=== PATIENT | female | born 1980 | race Hispanic/Latino ===

== ENCOUNTER 2023-09-20 12:06 | Emergency (ER) | payer SELFPAY ==
--- NOTE | ~2023-09-20 | CT_ITS ---
EXAMINATION: CT brain wo con DATE: 09/20/2023 15:47 INDICATION: Headache. TECHNIQUE: Computed tomography (CT) of the head was performed without intravenous contrast. The mA wa s adjusted according to patient size. Iterative reconstruction technique was employed. The dose-lengt h product was 605.33 mGy-cm. COMPARISON: None FINDINGS: There is no intracranial hemorrhage, acute infarction, or abnormal intracranial mass lesion . The ventricles are normal in size. The paranasal sinuses are clear. The mastoid air cells are yehuda l. IMPRESSION: 1. Normal brain. Reviewed, dictated and finalized at location A. IMPRESSION: 1. Normal brain.
[2023-09-20 12:30] VITALS: BP 156/90; PULSE 77; RESP 20; TEMP 36.3; O2SAT 99
[2023-09-20 14:59] VITALS: BP 160/94; PULSE 77; RESP 14; O2SAT 100
[2023-09-20] MEDS: SODIUM CHLORIDE 0.9% IV 1,000 ML 999 ML IV CONT (15:32)
[2023-09-20] MEDS: diphenhydrAMINE HCl INJ 50 MG/ML VIAL 25 MG IV PUSH (15:33)
[2023-09-20] MEDS: PROCHLORPERAZINE EDISYLATE 10 MG/2 ML VIAL IV PUSH (15:33)
[2023-09-20 16:10] VITALS: BP 147/87; PULSE 78; RESP 14; O2SAT 100
[2023-09-20] MEDS: KETOROLAC 15 MG/ML VIAL (*BKC) IV PUSH (16:30)
[2023-09-20 16:32] VITALS: BP 147/96; PULSE 69; RESP 14; O2SAT 100
--- NOTE | 2023-09-20 17:08 | ED.GENADULT ---
HPI - General Adult General Chief complaint: Headache Stated complaint: headache Time Seen by Provider: 09/20/23 15:18 History of Present Illness HPI narrative: 43-year-old female presenting to the emergency department for evaluation of headache. Patient does have a prior history of migraine. Patient states he did have follow-up with a physician in [place] and was provided some medications but did not have those medications. Related Data Allergies Allergy/AdvReac Type Severity Reaction Status Date / Time No Known Allergies Allergy Verified 09/20/23 15:05 Review of Systems Review of Systems: All systems reviewed & are unremarkable except as noted in HPI and below Exam Narrative: APPEARANCE: Well appearing, no pain, no distress, well-nourished. HEAD: normocephalic, atraumatic. EYES: PERRLA/EOMI, conjunctivae clear. NOSE: Normal no drainage EARS:TMS clear with good light reflex. THROAT: Pharynx clear, no exudate. NECK: Supple. No adenopathy, no masses. RESPIRATORY: Airway patent, respirations nonlabored. Clear to auscultation bilaterally, no rales, rhonchi, wheezing. CARDIOVASCULAR: Regular rate and rhythm without murmurs rubs or gallops. ABDOMINAL: Soft, nontender, nondistended, normal bowel sounds MUSCULOSKELETAL: Moves all extremities. Strength/ROM intact, No edema, No calf tenderness. NEURO: Alert. Cranial nerves II through XII intact. Good gait. Good coordination SKIN: Warm, dry. Normal Color PSYCHIATRIC: Normal affect/mood. Course Course Emergency Course: Patient felt improved with treatment Vital Signs Vital signs: Vital Signs Temperature 97.4 F L 09/20/23 12:30 Pulse Rate 77 09/20/23 12:30 Respiratory Rate 20 09/20/23 12:30 Blood Pressure 156/90 H 09/20/23 12:30 Pulse Oximetry 99 09/20/23 12:30 Oxygen Delivery Room Air 09/20/23 12:30 Temperature 97.4 F L 09/20/23 12:30 Pulse Rate 69 09/20/23 16:32 Respiratory Rate 14 09/20/23 16:32 Blood Pressure 147/96 H 09/20/23 16:32 Pulse Oximetry 100 09/20/23 16:32 Oxygen Delivery Room Air 09/20/23 12:30 Medical Decision Making [facility] Narrative Medical decision making narrative: 43-year-old female presents emergency department for evaluation for headache. Patient does have a prior history of migraines. Head CT was negative for acute intracranial abnormality. Patient did feel improved with treatment. Patient was encouraged of close follow-up with her primary care physician Differential Diagnosis Differential Diagnosis: Headache, migraine, intracranial abnormality Vital Signs Vital Signs: Vital Signs Temperature 97.4 F L 09/20/23 12:30 Pulse Rate 77 09/20/23 12:30 Respiratory Rate 20 09/20/23 12:30 Blood Pressure 156/90 H 09/20/23 12:30 Pulse Oximetry 99 09/20/23 12:30 Oxygen Delivery Room Air 09/20/23 12:30 Temperature 97.4 F L 09/20/23 12:30 Pulse Rate 69 09/20/23 16:32 Respiratory Rate 14 09/20/23 16:32 Blood Pressure 147/96 H 09/20/23 16:32 Pulse Oximetry 100 09/20/23 16:32 Oxygen Delivery Room Air 09/20/23 12:30 Imaging Data Radiologist's impression: Impressions Head CT 09/20/23 15:47 IMPRESSION: 1. Normal brain. Discharge Plan Discharge Clinical Impression: Migraine Patient Disposition: Home, Self-Care Condition: Stable Instructions: Antibiotic Form, Migraine Headache (ED) Additional Instructions: Tylenol and ibuprofen for pain control. Drink plenty of fluids. Have close follow-up with your primary care physician. If you have any worsening symptoms then please call or return to the emergency department. Patient Language: Irish Follow-up/Referrals: Javy Carlson MD [Physician] - UNKNOWN,DOCTOR [Primary Care Provider] -
== END 2023-09-20 17:32 | disposition home or self-care (01) ==
PROVIDERS: Emergency Provider Emergency Medicine
DX: G43.909 Migraine, unspecified, not intractable, without status migrainosus (principal)
CPT/HCPCS: 70450; 96361; 96374; 96375; 99284; J0780; J1200; J1885; J7030